=== PATIENT | male | born 1960 ===

== ENCOUNTER 2017-02-28 04:30 | Inpatient (IN) | payer BC ==
--- NOTE | 2017-02-28 05:17 | ED PDOC ---
HPI: Male Pain Time Seen by Provider: 02/28/17 04:37 Chief Complaint (Nursing): Male Genitourinary Chief Complaint (Provider): Male Genitourinary History Per: Patient History/Exam Limitations: no limitations Onset/Duration Of Symptoms: Days (x4) Current Symptoms Are (Timing): Still Present Additional Complaint(s): French Lea is a 56 year old male that presents to the ED with a chief complaint of right testicular pain that developed on Wednesday. Patient states that believes his pain initially started by "awkwardly sitting on his testicle, " but was then able to go cycling afterward without any difficulty. As the pain progressively worsened throughout the day, he went to an Urgent Care center, and was diagnosed with epididymitis. He reports no imaging was performed. Patient states that he was given a shot of antibiotics and given a prescription of Doxycyline, which he was been using without any relief. Patient noticed worsened swelling and pain today, as well as had a tactile fever last night, which prompted his ED visit. He denies any dysuria, hematuria, penile discharge , or penile pain. Past Medical History Reviewed: Historical Data, Nursing Documentation, Vital Signs Vital Signs: Last Vital Signs Temp 98.9 F 02/28/17 04:38 Pulse 120 H 02/28/17 04:38 Resp 18 02/28/17 04:38 BP 139/103 H 02/28/17 04:38 Pulse Ox 98 02/28/17 04:38 - Family History Family History: States: Unknown Family Hx - Allergies Allergies/Adverse Reactions: Allergies Allergy/AdvReac Type Severity Reaction Status Date / Time No Known Allergies Allergy Verified 02/28/17 04:38 Review of Systems ROS Statement: Except As Marked, All Systems Reviewed And Found Negative Genitourinary Male: Positive for: Scrotal Pain, Other (Patient has right testicular pain.). Negative for: Dysuria, Hematuria, Penile Discharge, Penile Pain Physical Exam - Reviewed Nursing Documentation Reviewed: Yes Vital Signs Reviewed: Yes - Physical Exam Appears: Positive for: Non-toxic. Negative for: No Acute Distress (Patient is in minimal painful distress.) Head Exam: Positive for: ATRAUMATIC, NORMAL INSPECTION, NORMOCEPHALIC Skin: Positive for: Normal Color, Warm. Negative for: Rash Eye Exam: Positive for: Normal appearance, EOMI, PERRL Cardiovascular/Chest: Positive for: Regular Rate, Rhythm. Negative for: Murmur Respiratory: Positive for: Normal Breath Sounds. Negative for: Wheezing Gastrointestinal/Abdominal: Positive for: Normal Exam, Soft. Negative for: Tenderness Male Genital Exam: Positive for: other (Patient is a noncircumcised male with a large amount of right testicular swelling. Patient's left testicle has no tenderness, swelling, or masses. Negative Phren's sign. ) Back: Positive for: Normal Inspection. Negative for: L CVA Tenderness, R CVA Tenderness Neurologic/Psych: Positive for: Alert, Oriented. Negative for: Motor/Sensory Deficits - ECG O2 Sat by Pulse Oximetry: 98 (RA) Pulse Ox Interpretation: Normal Medical Decision Making Medical Decision Making: Impression: Testicular Pain Plan: * VBG * CMP * CBC * Chlamydia GC/RNA * Blood Culture * Urine C&S * Urinalysis * US Testest Duplex * Toradol 15 mg IM * Reevaluation 6:00 Patient signed out to Dr. Negrito Haynes MD pending ultrasound. Clinical Impression: Orchitis Scribe Attestation: Documented by Teagan Dawkins, acting as a scribe for Aristeo Holt PA-C. Provider Scribe Attestation: All medical record entries made by the Scribe were at my direction and personally dictated by me. I have reviewed the chart and agree that the record accurately reflects my personal performance of the history, physical exam, medical decision making, and the department course for this patient. I have also personally directed, reviewed, and agree with the discharge instructions and disposition. Disposition - Clinical Impression Clinical Impression: Orchitis - Disposition Disposition: Transfer of Care (Patient signed out to Dr. Negrito Haynes MD pending ultrasound.) Disposition Time: 06:00 Condition: FAIR Forms: [employer] (German)
[2017-02-28 05:38] LABS: VENOUS BLOOD GAS PCO2 32 mmHg (40-60); VENOUS BLOOD PH 7.45 (7.32-7.43)
[2017-02-28 06:10] LABS: RBC URINE 105 /hpf (0-3); URINE BACTERIA OCC (<OCC); URINE BILIRUBIN NEGATIVE (NEGATIVE); URINE BLOOD LARGE (NEGATIVE); URINE COLOR AMBER (YELLOW); URINE GLUCOSE (UA) NEG (Normal); URINE KETONE 80 mg/dL (NEGATIVE); URINE LEUKOCYTE ESTERASE SMALL Leu/uL (Negative); URINE PROTEIN 100 mg/dL (NEGATIVE); URINE UROBILINOGEN 0.2-1.0 mg/dL (0.2-1.0); WBC URINE 31 /hpf (0-5)
--- NOTE | 2017-02-28 06:10 | ED PDOC ---
- ECG O2 Sat by Pulse Oximetry: 98 (RA) <Negrito Haynes - Last Filed: 02/28/17 06:22> Medical Decision Making <Aristeo Holt - Last Filed: 02/28/17 06:13> <Negrito Haynes - Last Filed: 02/28/17 06:22> Medical Decision Makin:00 Patient signed over to me by Aristeo Holt PA-C pending ED workup pending ultrasound. Saw and examined patient at beside, patient feels warm to touch. Right testicle is firm, boggy, and erythematous. Concern for orchitis. 7:00 Patient signed out to Dr. Bliss pending ultrasound. (Negrito Haynes) Disposition - Disposition Disposition: Transfer of Care (Patient signed out to Dr. Negrito Haynes MD pending ultrasound) Disposition Time: 06:00 <Aristeo Holt E - Last Filed: 02/28/17 06:13> <Negrito Haynes - Last Filed: 02/28/17 06:22> - Clinical Impression Clinical Impression: Orchitis - Disposition Condition: FAIR Forms: [employer] (Croatian)
[2017-02-28] MEDS ORDERED: Sodium Chloride 0.9% 1,000 ML IV STA (06:13)
--- NOTE | 2017-02-28 06:25 | ED PDOC ---
- ECG O2 Sat by Pulse Oximetry: 98 (RA) Medical Decision Making Medical Decision Makin:00 Patient signed over to me by Aristeo Holt PA-C pending ED workup pending ultrasound. Saw and examined patient at beside, patient feels warm to touch. Right testicle is firm, boggy, and erythematous. Concern for orchitis. 7:00 Patient signed out to Dr. Bliss pending ultrasound. Disposition - Clinical Impression Clinical Impression: Orchitis - POA Present On Arrival: None - Disposition Disposition: Transfer of Care (Patient signed out to Dr. Bliss pending ultrasound.) Disposition Time: 07:00 Condition: FAIR Forms: [employer] (Dominican)
--- NOTE | 2017-02-28 06:27 | ED PDOC ---
- ECG O2 Sat by Pulse Oximetry: 98 (RA) Medical Decision Making Medical Decision Makin:00 Patient signed over to me by Aristeo Holt PA-C pending ED workup pending ultrasound. Saw and examined patient at beside, patient feels warm to touch. Right testicle is firm, boggy, and erythematous. Concern for orchitis. 7:00 Patient signed out to Dr. Bliss pending ultrasound. Disposition - Clinical Impression Clinical Impression: Orchitis - POA Present On Arrival: None - Disposition Disposition: Transfer of Care Disposition Time: 07:00 Condition: FAIR Forms: [employer] (Kuwaiti) Patient Signed Over To: Scarlet Bliss (pending ultrasound) Handoff Comments: bloodwork, u/s
[2017-02-28 06:38] LABS: BASO # 0.1 K/uL (0.0-0.2); BASO % 0.2 % (0.0-2.0); HEMATOCRIT 42.3 % (35.0-51.0); LYMPH # 0.6 K/uL (1.0-4.3); MEAN CELL VOLUME 90.9 fl (80.0-94.0); MEAN CORPUSCULAR HEMOGLOBIN 30.7 pg (27.0-31.0); MEAN CORPUSCULAR HGB CONC 33.7 g/dL (33.0-37.0); MEAN PLATELET VOLUME 8.9 fl (7.2-11.7); MONO # 1.4 K/uL (0.0-0.8); MONO % 6.6 % (0.0-10.0); NEUT # 18.8 K/uL (1.8-7.0); NEUT % 90.2 % (50.0-75.0); PLATELET COUNT 245 K/uL (130-400); WHITE BLOOD COUNT 20.9 K/uL (4.8-10.8)
[2017-02-28] MEDS ORDERED: levoFLOXacin 750 mg in D5W 750 MG/150 ML BAG IVPB STA (06:40)
[2017-02-28 06:57] LABS: ALB/GLOB RATIO 1.2 (1.0-2.1); ALKALINE PHOSPHATASE 128 U/L (38-126); ALT/SGPT 22 U/L (21-72); AST/SGOT 24 U/L (17-59); BILIRUBIN,TOTAL 1.4 mg/dl (0.2-1.3); BLOOD UREA NITROGEN 19 mg/dl (9-20); CALCIUM 9.4 mg/dL (8.4-10.2); CARBON DIOXIDE 23 mmol/L (22-30); CHLORIDE 102 mmol/L (98-107); GFR AFRICAN-AMERICAN > 60; GLUCOSE,RANDOM 133 mg/dL (75-110); POTASSIUM 3.8 MMOL/L (3.6-5.0); SODIUM 138 mmol/l (132-148)
--- NOTE | 2017-02-28 07:09 | ED PDOC ---
- Laboratory Results Result Diagrams: 03/01/17 07:00 03/01/17 07:00 - ECG O2 Sat by Pulse Oximetry: 98 (RA) Pulse Ox Interpretation: Normal Medical Decision Making Medical Decision Making: Receiving sign out: Patient signed out to me by Dr. Haynes at 0700 pending testicular US. Scribe Attestation: Documented by Melissa Mendiola acting as a scribe for Scarlet Bliss MD. Provider Attestation: All medical record entries made by the Scribe were at my direction and personally dictated by me. I have reviewed the chart and agree that the record accurately reflects my personal performance of the history, physical exam, medical decision making, and the department course for this patient. I have also personally directed, reviewed, and agree with the discharge instructions and disposition. Disposition - Clinical Impression Clinical Impression: Epididymo-orchitis, SIRS (systemic inflammatory response syndrome), Failure of outpatient treatment - POA Present On Arrival: None - Disposition Disposition: Admitted as In-Patient Disposition Time: 09:44 Condition: STABLE Progress Note - Review of Symptoms Events since last encounter: Time: 32 US Testicular IMPRESSION: Complex the right-sided hydrocele with right epididymal cyst and increased vascularity associate with increased vascularity of the right testicle collectively consistent with epididymo-orchitis. . Right-sided varicocele. Small left-sided epididymal cyst and small left-sided hydrocele. Time: [address] Thompson, hospitalist, and patient is to be admitted in- service due to SIRS, epididymo-orchitis and failed outpatient therapy. Time: [address] Spivey, consult requested and informed of admission. Dr. Spivey is aware of case and agrees with plan.
[2017-02-28] MEDS ORDERED: levoFLOXacin 750 mg in D5W 750 MG/150 ML BAG IVPB ONE (07:22)
--- NOTE | 2017-02-28 09:33 | US ---
HISTORY: R testicular pain and swelling TECHNIQUE: Realtime sonography through the scrotum with color and doppler flow. COMPARISON: None Available. FINDINGS: RIGHT TESTICLE: Measures approximately 5.3 x 3.2 x 2.7 cm. Right testicle exhibits heterogeneous echotexture and increased vascularity suggesting orchitis RIGHT EPIDIDYMIS: Epididymal head measures 3.0 x 2.012.4 cm. . There is a cyst enhancing hyperdense which measures 1.7 x 1.5 x 1.9 cm with increased vascularity suggesting epididymitis. LEFT TESTICLE: Measures approximately 4.3 x 2.8 x 2.9 cm. Normal echotexture and flow. LEFT EPIDIDYMIS: Epididymal head measures approximately 1.0 x 1.3 x 1.6 cm. There is also small cyst within the head of the epididymis that may represent a spermatocele measuring 5 mm x 5 mm x 5 mm. HYDROCELE: Complex right-sided hydrocele. . Small left-sided hydrocele VARICOCELE: Right-sided varicoceles present OTHER FINDINGS: None. IMPRESSION: Complex the right-sided hydrocele with right epididymal cyst and increased vascularity associate with increased vascularity of the right testicle collectively consistent with epididymo-orchitis. . Right-sided varicocele. Small left-sided epididymal cyst and small left-sided hydrocele
--- NOTE | 2017-02-28 10:56 | CP.PCM.HP ---
History of Present Illness - History of Present Illness History of Present Illness: 56 yo male with history of BPH and TURP in October, came in complaining of pain and swelling of the right testicle since 4 days ago. Condition started as pain on the right testicle radiating to the suprapubic area and back. The next day, the pain became more intense and his right testicle became enlarged the size of a baseball and was very hard. He went to an urgent and was given a shot of antibiotic and was sent home with Doxycycline. There was slight improvement but the next day, pain became intense accompanied with fever and chills. He denied dysuria or penile discharge. Present on Admission - Present on Admission Any Indicators Present on Admission: No History of DVT/PE: No History of Uncontrolled Diabetes: No Urinary Catheter: No Decubitus Ulcer Present: No Review of Systems - Review of Systems All systems: reviewed and no additional remarkable complaints except (aside from those mentioned above, 12 point system review were negative by me) Past Patient History - Tetanus Immunizations Tetanus Immunization: Unknown - Past Social History Smoking Status: Never Smoked Alcohol: Occasional Drugs: Denies Home Situation {Lives}: With Family - CARDIAC Hx Cardiac Disorders: No - PULMONARY Hx Respiratory Disorders: No - NEUROLOGICAL Hx Neurological Disorder: No - HEENT Hx HEENT Problems: No - RENAL Hx Chronic Kidney Disease: No - ENDOCRINE/METABOLIC Hx Endocrine Disorders: No - HEMATOLOGICAL/ONCOLOGICAL Hx Blood Disorders: No - INTEGUMENTARY Hx Dermatological Problems: No - MUSCULOSKELETAL/RHEUMATOLOGICAL Hx Musculoskeletal Disorders: No - GASTROINTESTINAL Hx Gastrointestinal Disorders: No - GENITOURINARY/GYNECOLOGICAL Hx Prostate Problems: Yes - PSYCHIATRIC Hx Psychophysiologic Disorder: No Hx Substance Use: No - SURGICAL HISTORY Hx Surgeries: Yes Other/Comment: TURP, October, - ANESTHESIA Hx Anesthesia: Yes Hx Anesthesia Reactions: No Meds Allergies/Adverse Reactions: Allergies Allergy/AdvReac Type Severity Reaction Status Date / Time No Known Allergies Allergy Verified 02/28/17 04:38 Physical Exam - Constitutional Appears: No Acute Distress - Head Exam Head Exam: ATRAUMATIC - Eye Exam Eye Exam: absent: Scleral icterus - ENT Exam ENT Exam: Mucous Membranes Moist - Neck Exam Neck exam: Negative for: Meningismus - Respiratory Exam Respiratory Exam: absent: Rhonchi, Wheezes, Respiratory Distress - Cardiovascular Exam Cardiovascular Exam: REGULAR RHYTHM, +S1, +S2 - GI/Abdominal Exam GI & Abdominal Exam: Soft, Tenderness (mild tenderness on suprapubic area) - Rectal Exam Rectal Exam: Deferred - Exam Exam: Scrotal Swelling (right testicle markedly swollen, hard and tender). absent: Uretheral Discharge - Extremities Exam Extremities exam: Negative for: pedal edema - Back Exam Back exam: NORMAL INSPECTION - Neurological Exam Neurological exam: Alert, Oriented x3 - Psychiatric Exam Psychiatric exam: Normal Affect - Skin Skin Exam: Dry, Intact Results - Vital Signs Recent Vital Signs: Last Vital Signs Temp 101.3 F H 02/28/17 06:39 Pulse 120 H 02/28/17 04:38 Resp 18 02/28/17 04:38 BP 139/103 H 02/28/17 04:38 Pulse Ox 98 02/28/17 09:52 - Labs Result Diagrams: 02/28/17 05:24 02/28/17 05:24 Assessment & Plan (1) Epididymo-orchitis Status: Acute Comment: admit to med/surg. blood culture x 2. urine culture. Levaquin 750mg IV q 24hrs. Motrin 400mg PO q 4hrs prn for moderate pain. Morphine 2mg IV q 4hrs prn for severe pain. urology consult with Dr Spivey
[2017-02-28 11:44] LABS: NEUTROPHIL 81 % (42-75); TOTAL CELLS COUNTED 100
[2017-02-28 11:45] LABS: LARGE PLATELETS PRESENT
[2017-03-01 07:48] LABS: HEMATOCRIT 38.1 % (35.0-51.0); LYMPH # 1.2 K/uL (1.0-4.3); LYMPH % 4.4 % (20.0-40.0); MEAN CELL VOLUME 91.5 fl (80.0-94.0); MEAN CORPUSCULAR HEMOGLOBIN 30.1 pg (27.0-31.0); MEAN CORPUSCULAR HGB CONC 32.9 g/dL (33.0-37.0); MEAN PLATELET VOLUME 8.8 fl (7.2-11.7); MONO # 2.4 K/uL (0.0-0.8); MONO % 8.5 % (0.0-10.0); NEUT # 24.1 K/uL (1.8-7.0); NEUT % 87.1 % (50.0-75.0); RED CELL DISTRIBUTION WIDTH 13.7 % (11.5-14.5); WHITE BLOOD COUNT 27.7 K/uL (4.8-10.8)
[2017-03-01 07:57] LABS: BLOOD UREA NITROGEN 24 mg/dl (9-20); CARBON DIOXIDE 26 mmol/L (22-30); CHLORIDE 100 mmol/L (98-107); GFR AFRICAN-AMERICAN > 60; GLUCOSE,RANDOM 123 mg/dL (75-110); POTASSIUM 4.7 MMOL/L (3.6-5.0); SODIUM 135 mmol/l (132-148)
[2017-03-01] MEDS ORDERED: levoFLOXacin 750 mg in D5W 150 ML BAG IVPB SCH (09:00)
[2017-03-01] MEDS: Enoxaparin 40 mg Syringe SC SCH (09:10)
[2017-03-01] MEDS ORDERED: Chlorhexidine Gluconate 1 APPL/PKT TP ONE (09:24)
[2017-03-01] MEDS: levoFLOXacin 750 mg in D5W 750 MG/150 ML BAG IVPB SCH (09:40)
--- NOTE | 2017-03-01 12:02 | CP.PCM.PN ---
Subjective - Date & Time of Evaluation Date of Evaluation: 03/01/17 Time of Evaluation: 11:30 - Subjective Subjective: Patient seen and examined bedside. Feeling a little better. Swelling to right testis slightly improved . Still febrile Tmax 102.9 . WBC trending up from 20 K to 27 K Objective - Vital Signs/Intake and Output Vital Signs (last 24 hours): Temp Pulse Resp BP Pulse Ox 102.9 F H 110 H 20 95/65 L 96 03/01/17 07:37 03/01/17 07:30 03/01/17 07:30 03/01/17 07:30 03/01/17 07:30 - Medications Medications: Current Medications Acetaminophen (Tylenol 325mg Tab) 650 mg PO Q6 PRN PRN Reason: Fever >100.4 F Last Admin: 03/01/17 07:37 Dose: 650 mg Enoxaparin Sodium (Lovenox) 40 mg SC DAILY [facility] PRN Reason: Protocol Last Admin: 03/01/17 09:10 Dose: 40 mg Famotidine (Pepcid) 20 mg PO BID [facility] Last Admin: 03/01/17 09:11 Dose: 20 mg Levofloxacin/Dextrose (Levaquin 750mg) 750 mg in 150 mls @ 150 mls/hr IVPB DAILY [facility] Last Admin: 03/01/17 09:40 Dose: 150 mls/hr Clindamycin Phosphate 600 mg/ (Sodium Chloride) 54 mls @ 54 mls/hr IVPB Q8 [facility] Ibuprofen (Motrin Tab) 400 mg PO Q6H PRN PRN Reason: Pain, moderate (4-7) Last Admin: 02/28/17 18:11 Dose: 400 mg Morphine Sulfate (Morphine) 2 mg IVP Q4 PRN PRN Reason: Pain, severe (8-10) Last Admin: 02/28/17 20:11 Dose: 2 mg - Labs Labs: 03/01/17 07:00 03/01/17 07:00 - Constitutional Appears: Non-toxic, No Acute Distress - Head Exam Head Exam: ATRAUMATIC, NORMAL INSPECTION, NORMOCEPHALIC - Eye Exam Eye Exam: EOMI, Normal appearance, PERRL Pupil Exam: NORMAL ACCOMODATION - ENT Exam ENT Exam: Mucous Membranes Moist, Normal Exam - Neck Exam Neck Exam: Full ROM, Normal Inspection - Respiratory Exam Respiratory Exam: Clear to Ausculation Bilateral, NORMAL BREATHING PATTERN. absent: Rales, Rhonchi, Wheezes - Cardiovascular Exam Cardiovascular Exam: REGULAR RHYTHM, RRR, +S1, +S2. absent: JVD - GI/Abdominal Exam GI & Abdominal Exam: Soft, Normal Bowel Sounds. absent: Distended, Guarding, Tenderness, Rebound - Rectal Exam Rectal Exam: Deferred - Exam Exam: Scrotal Swelling (right , hard to touch with no fluctuation or abscess) , Testicular Tenderness - Extremities Exam Extremities Exam: Full ROM, Normal Capillary Refill, Normal Inspection. absent : Calf Tenderness, Pedal Edema - Back Exam Back Exam: NORMAL INSPECTION - Neurological Exam Neurological Exam: Alert, Awake, CN II-XII Intact, Oriented x3 - Psychiatric Exam Psychiatric exam: Normal Affect, Normal Mood - Skin Skin Exam: Dry, Intact, Normal Color, Warm Assessment and Plan - Assessment and Plan (Free Text) Assessment: 56 yo male with history of BPH and TURP in October, came in complaining of pain and swelling of the right testicle for 4 days. Condition started as pain on the right testicle radiating to the suprapubic area and back. The next day, the pain became more intense and his right testicle became enlarged the size of a baseball and was very hard. He went to an urgent and was given a shot of antibiotic and was sent home with Doxycycline. There was slight improvement but the next day, pain became intense accompanied with fever and chills. He denied dysuria or penile discharge. 1 Epididymo-orchitis Acute patient is febrile Tmax 102.9 , WBC elevated 27 k Continue Levaquine IV and started on Clindamycin as per ID Follow up urine and blood cultures urology and ID consult appreciated pain management 2. DVt prophylaxis SCD and lovenox
[2017-03-01] MEDS ORDERED: Clindamycin 600 MG in Sodium Chloride 0.9% 100 ML IVPB SCH (12:15)
[2017-03-01] MEDS: Clindamycin 600 MG in Sodium Chloride 0.9% 100 ML IVPB SCH (21:26)
[2017-03-02] MEDS: Clindamycin 600 MG in Sodium Chloride 0.9% 100 ML IVPB SCH ×3 (05:59→21:33)
--- NOTE | 2017-03-02 06:58 | CON ---
DATE: 03/01/2017 TIME OF CONSULTATION: Roughly 9:34 a.m. BRIEF HISTORY: The patient is a 56-year-old male who was originally seen at an urgent care center on 02/26/2017, with a history of acute swelling of the right testicle and the patient was treated at the urgent center with an IM antibiotic and then oral doxycycline. He initially felt better with decreased swelling and pain for the first 36 hours and then progressed and started developing increased swelling and pain. The patient then came to [facility] Emergency Room where a scrotal ultrasound on 02/28/2017, showed right epididymo-orchitis. The patient was admitted because of spiking high temperatures and an elevated white count of 20,000. The patient was started on IV Levaquin and is currently still spiking temperatures over 102, today 03/01/2017, and his white count went from 20,000 to over 27,000 on IV Levaquin. The IM medication, which he responded to at the urgent center is not known at this time, but this will be verified today. The patient says that his swelling; however, has gone down, and he is almost pain-free in the right testicle at this hour. PAST MEDICAL HISTORY: He has no prior past medical history. PAST SURGICAL HISTORY: His past surgical history is status post a TURP done at [facility] in [place] in October 2016 with a treatment of BPH. ALLERGIES: HE HAS NO KNOWN ALLERGIES TO ANY MEDICATION. SOCIAL HISTORY: He is a nonsmoker and just a occasional social drinker. PHYSICAL EXAMINATION: GENERAL: Today, he is well-developed, well-nourished male. He is alert and oriented. VITAL SIGNS: Today, early this morning, his temperature was 97.8, but later this morning, his temperature spiked to a 102.9 at 7.37 a.m. His pulse rate is 110, his blood pressure was 95/65, and his respiratory rate is 20, and his O2 sat on room air was 96% HEENT: Grossly within normal limits. NECK: Supple. Thyroid not palpable. ABDOMEN: Soft, nondistended, and nontender. No CVA tenderness. No suprapubic tenderness. GENITALIA: The patient is non-circumcised with a normal glans meatus without any rashes or lesions visualized. Testes are down bilaterally. The left testicle was completely normal. The right testicle and epididymis are both swollen and moderately tender. RECTAL: Normal rectal tone without fluctuance or masses. Prostate is slightly enlarged, smooth, symmetrical, and minimally tender without nodules or indurations with a palpable median sulcus. The prostate is minimally tender mostly on the right side. LABORATORY EVALUATION: His laboratory evaluation on 03/01/2017, shows a CBC with a WBC count of 27.7, hemoglobin of 12.5, hematocrit of 38.1, and a platelet count of 224,000. His chem profile shows a sodium of 135, potassium 4.7, chloride 100, CO2 26, BUN and creatinine 24 and 1.3 respectively with a GFR of 57. Random glucose is 123, calcium is 9.0. Urinalysis on 02/28/2017, showed a color was mita, clarity was slightly cloudy, pH was 5.0, specific gravity 1.032, protein 100, glucose negative, ketones 80; blood large; nitrite negative; bilirubin negative; urobilinogen 0.2 to 1.0. Leukocyte esterase small. There are 105 rbc's and 31 wbc's per high-power field with occasional bacteria. This could be indicative of a urinary tract infection. Urine cultures and sensitivity are pending. DIAGNOSTIC IMPRESSION: For this patient right now is; 1. Right epididymo-orchitis. 2. Possible urinary tract infection. 3. Microscopic hematuria. PLAN: 1. For this patient, continue the patient on IV antibiotics. 2. Infectious Disease consult should be requested at this time. 3. Check the parenteral medication the patient received at the urgent care center on Wednesday02/26/2017. 4. Check the urine cultures and blood cultures. Randy Spivey MD [facility]
[2017-03-02 07:25] LABS: HEMATOCRIT 37.1 % (35.0-51.0); MEAN CORPUSCULAR HEMOGLOBIN 30.6 pg (27.0-31.0); RED CELL DISTRIBUTION WIDTH 13.9 % (11.5-14.5); WHITE BLOOD COUNT 20.5 K/uL (4.8-10.8)
--- NOTE | 2017-03-02 07:33 | CP.PCM.PN ---
Subjective - Date & Time of Evaluation Date of Evaluation: 03/02/17 Time of Evaluation: 11:00 - Subjective Subjective: Patient seen and examined bedside. States that feels better. Still febrile with Tmax 102.9 1 episode last 24 hours WBC trending down from 27 K -- 20 Pain to right testis is better controlled Objective - Vital Signs/Intake and Output Vital Signs (last 24 hours): Temp Pulse Resp BP Pulse Ox 98.6 F 72 20 111/72 96 03/02/17 01:22 03/02/17 01:22 03/02/17 01:22 03/02/17 01:22 03/02/17 01:22 - Medications Medications: Current Medications Acetaminophen (Tylenol 325mg Tab) 650 mg PO Q6 PRN PRN Reason: Fever >100.4 F Last Admin: 03/01/17 07:37 Dose: 650 mg Docusate Sodium (Colace) 100 mg PO BID [facility] Last Admin: 03/01/17 21:34 Dose: 100 mg Enoxaparin Sodium (Lovenox) 40 mg SC DAILY [facility] PRN Reason: Protocol Last Admin: 03/01/17 09:10 Dose: 40 mg Famotidine (Pepcid) 20 mg PO BID [facility] Last Admin: 03/01/17 17:12 Dose: 20 mg Levofloxacin/Dextrose (Levaquin 750mg) 750 mg in 150 mls @ 150 mls/hr IVPB DAILY [facility] Last Admin: 03/01/17 09:40 Dose: 150 mls/hr Clindamycin Phosphate 600 mg/ (Sodium Chloride) 104 mls @ 104 mls/hr IVPB 0600, 1400,2200 [facility] Last Admin: 03/02/17 05:59 Dose: 104 mls/hr Ibuprofen (Motrin Tab) 400 mg PO Q6H PRN PRN Reason: Pain, moderate (4-7) Last Admin: 02/28/17 18:11 Dose: 400 mg Morphine Sulfate (Morphine) 2 mg IVP Q4 PRN PRN Reason: Pain, severe (8-10) Last Admin: 02/28/17 20:11 Dose: 2 mg - Labs Labs: 03/02/17 07:05 03/01/17 07:00 - Constitutional Appears: Non-toxic, No Acute Distress - Head Exam Head Exam: ATRAUMATIC, NORMAL INSPECTION, NORMOCEPHALIC - Eye Exam Eye Exam: EOMI, Normal appearance, PERRL Pupil Exam: NORMAL ACCOMODATION - ENT Exam ENT Exam: Mucous Membranes Moist, Normal Exam - Neck Exam Neck Exam: Full ROM, Normal Inspection - Respiratory Exam Respiratory Exam: Clear to Ausculation Bilateral, NORMAL BREATHING PATTERN. absent: Rales, Rhonchi, Wheezes - Cardiovascular Exam Cardiovascular Exam: REGULAR RHYTHM, RRR, +S1, +S2. absent: JVD - GI/Abdominal Exam GI & Abdominal Exam: Soft, Normal Bowel Sounds. absent: Distended, Guarding, Tenderness, Rebound - Rectal Exam Rectal Exam: Deferred - Exam Exam: Scrotal Swelling (right ), Testicular Tenderness. absent: Uretheral Discharge - Extremities Exam Extremities Exam: Full ROM, Normal Capillary Refill, Normal Inspection. absent : Calf Tenderness, Pedal Edema - Back Exam Back Exam: NORMAL INSPECTION - Neurological Exam Neurological Exam: Alert, Awake, CN II-XII Intact, Oriented x3 - Psychiatric Exam Psychiatric exam: Normal Affect, Normal Mood - Skin Skin Exam: Dry, Intact, Normal Color, Warm Assessment and Plan - Assessment and Plan (Free Text) Assessment: 56 yo male with history of BPH and TURP in October, came in complaining of pain and swelling of the right testicle for 4 days. Condition started as pain on the right testicle radiating to the suprapubic area and back. The next day, the pain became more intense and his right testicle became enlarged the size of a baseball and was very hard. He went to an urgent and was given a shot of antibiotic and was sent home with Doxycycline. There was slight improvement but the next day, pain became intense accompanied with fever and chills. He denied dysuria or penile discharge. Patient admitted with fever Tmax 102, WBC 20 K . Testicular US showed:Complex the right-sided hydrocele with right epididymal cyst and increased vascularity associate with increased vascularity of the right testicle collectively consistent with epididymo-orchitis. . Right-sided varicocele. Small left-sided epididymal cyst and small left-sided hydrocele Patient admitted to med/surg and started on IV antibiotics. Urology and ID consulted 1 Epididymo-orchitis Acute patient Tmax 102.9 1 episode last 24 hours , WBC trending down from 27 k -- 20 k, feeling better Continue Levaquine IV and Clindamycin iv as per ID urine and blood cultures WITH NO GROWTH ANDREA FAR urology and ID consult appreciated pain management 2. DVt prophylaxis SCD and lovenox
[2017-03-02 07:34] LABS: BLOOD UREA NITROGEN 19 mg/dl (9-20); CARBON DIOXIDE 24 mmol/L (22-30); CHLORIDE 104 mmol/L (98-107); GFR AFRICAN-AMERICAN > 60; GLUCOSE,RANDOM 118 mg/dL (75-110); SODIUM 140 mmol/l (132-148)
[2017-03-02] MEDS: Enoxaparin 40 mg Syringe SC SCH (08:56)
[2017-03-02] MEDS: levoFLOXacin 750 mg in D5W 750 MG/150 ML BAG IVPB SCH (08:56)
--- NOTE | 2017-03-02 11:44 | CP.PCM.CON ---
History of Present Illness - History of Present Illness History of Present Illness: 56 yo male with history of BPH and TURP in October, came in complaining of pain and swelling of the right testicle since 4 days ago. Condition started as pain on the right testicle radiating to the suprapubic area and back. The next day, the pain became more intense and his right testicle became enlarged the size of a baseball and was very hard. He went to an urgent and was given a shot of antibiotic and was sent home with Doxycycline. There was slight improvement but the next day, pain became intense accompanied with fever and chills. He denied dysuria or penile discharge. initially started on Levaquin all cultures negative clinda added empirically and now wbc down to 20k Review of Systems - Constitutional Constitutional: As Per HPI - EENT Eyes: absent: As Per HPI, Blind Spots, Blurred Vision, Change in Vision, Decreased Night Vision, Diplopia, Discharge, Dry Eye, Exophthalmos, Floaters, Irritation, Itchy Eyes, Loss of Peripheral Vision, Pain, Photophobia, Requires Corrective Lenses, Sees Flashes, Spots in Vision, Tunnel Vision, Other Visual Disturbances, Loss of Vision, Other Ears: absent: As Per HPI, Decreased Hearing, Ear Discharge, Ear Pain, Tinnitus, Abnormal Hearing, Disequilibrium, Dizziness, Other Nose/Mouth/Throat: absent: As Per HPI, Epistaxis, Nasal Congestion, Nasal Discharge, Nasal Obstruction, Nasal Trauma, Nose Pain, Post Nasal Drip, Sinus Pain, Sinus Pressure, Bleeding Gums, Change in Voice, Dental Pain, Dry Mouth, Dysphagia, Halitosis, Hoarsness, Lip Swelling, Mouth Lesions, Mouth Pain, Odynophagia, Sore Throat, Throat Swelling, Tongue Swelling, Facial Pain, Neck Pain, Neck Mass, Other - Cardiovascular Cardiovascular: absent: As Per HPI, Acrocyanosis, Chest Pain, Chest Pain at Rest , Chest Pain with Activity, Claudication, Diaphoresis, Dyspnea, Dyspnea on Exertion, Edema, Irregular Heart Rhythm, Pain Radiating to Arm/Neck/Jaw, Leg Edema, Leg Ulcers, Lightheadedness, Orthopnea, Palpitations, Paroxysmal Nocturnal Dyspnea, Pedal Edema, Radiating Pain, Rapid Heart Rate, Slow Heart Rate, Syncope, Other - Respiratory Respiratory: absent: As Per HPI, Cough, Dyspnea, Hemoptysis, Dyspnea on Exertion , Wheezing, Snoring, Stridor, Pain on Inspiration, Chest Congestion, Excessive Mucous Production, Change in Mucous Color, Pain with Coughing, Other - Gastrointestinal Gastrointestinal: absent: As Per HPI, Abdominal Pain, Belching, Bloating, Change in Bowel Habits, Change in Stool Character, Coffee Ground Emesis, Constipation, Cramping, Diarrhea, Dyspepsia, Dysphagia, Early Satiety, Excessive Flatus, Fecal Incontinence, Heartburn, Hematemesis, Hematochezia, Loose Stools, Melena, Nausea, Odynophagia, Temesmus, Vomiting, Other - Genitourinary Genitourinary: As Per HPI - Musculoskeletal Musculoskeletal: absent: As Per HPI, Abnormal Gait, Arthralgias, Atrophy, Back Pain, Deformity, Joint Swelling, Limited Range of Motion, Loss of Height, Muscle Cramps, Muscle Weakness, Myalgias, Neck Pain, Numbness, Radiating Pain into Limb, Stiffness, Tingling, Other - Integumentary Integumentary: absent: As Per HPI, Acne, Alopecia, Bleeding Lesions, Change in Hair, Change in Nails, Change in Pigmentation, Changing Lesions, Dry Skin, Erythema, Furuncle, Hirsutism, Lesions, New Lesions, Non-Healing Lesions, Photosensitivity, Pruritus, Rash, Skin Pain, Skin Ulcer, Sores, Striae, Swelling , Unusual Bruising, Wounds, Jaundice, Other - Neurological Neurological: absent: As Per HPI, Abnormal Gait, Abnormal Hearing, Abnormal Movements, Abnormal Speech, Behavioral Changes, Burning Sensations, Confusion, Convulsions, Disequilibrium, Dizziness, Numbness, Focal Weakness, Frequent Falls , Headaches, Lack of Coordination, Loss of Vision, Memory Loss, Paresthesias, Radicular Pain, Restless Legs, Sensory Deficit, Syncope, Tingling, Tremor, Vertigo, Weakness, Other Visual Disturbances, Other - Psychiatric Psychiatric: absent: As Per HPI, Abnormal Sleep Pattern, Anhedonia, Anxiety, Auditory Hallucinations, Behavioral Changes, Change in Appetite, Change in Libido, Confusion, Depression, Difficulty Concentrating, Hallucinations, Homicidal Ideation, Hopelessness, Irritability, Memory Loss, Mood Swings, Panic Attacks, Paranoia, Suicidal Ideation, Visual Hallucinations, Tactile Hallucinations, Other - Endocrine Endocrine: absent: As Per HPI, Change in Body Appearance, Change in Libido, Cold Intolorance, Deepening of Voice, Excessive Sweating, Fatigue, Flushing, Heat Intolorance, Increase in Ring/Shoe/Hat Size, Palpitations, Polydipsia, Polyphagia, Polyuria, Other - Hematologic/Lymphatic Hematologic: absent: As Per HPI, Easy Bleeding, Easy Bruising, Lymphadenopathy, Other Past Patient History - Tetanus Immunizations Tetanus Immunization: Unknown - Past Medical History & Family History Past Medical History?: Yes - Past Social History Smoking Status: Never Smoked - CARDIAC Hx Cardiac Disorders: No - PULMONARY Hx Respiratory Disorders: No - NEUROLOGICAL Hx Neurological Disorder: No - HEENT Hx HEENT Problems: No - RENAL Hx Chronic Kidney Disease: No - ENDOCRINE/METABOLIC Hx Endocrine Disorders: No - HEMATOLOGICAL/ONCOLOGICAL Hx Blood Disorders: No - INTEGUMENTARY Hx Dermatological Problems: No - MUSCULOSKELETAL/RHEUMATOLOGICAL Hx Musculoskeletal Disorders: No Hx Falls: No - GASTROINTESTINAL Hx Gastrointestinal Disorders: No - GENITOURINARY/GYNECOLOGICAL Hx Prostate Problems: Yes (prostate sx.) - PSYCHIATRIC Hx Psychophysiologic Disorder: No Hx Substance Use: No - SURGICAL HISTORY Hx Surgeries: Yes Other/Comment: TURP, October, - ANESTHESIA Hx Anesthesia: Yes Hx Anesthesia Reactions: No Meds Allergies/Adverse Reactions: Allergies Allergy/AdvReac Type Severity Reaction Status Date / Time No Known Allergies Allergy Verified 02/28/17 04:38 - Medications Medications: Current Medications Acetaminophen (Tylenol 325mg Tab) 650 mg PO Q6 PRN PRN Reason: Fever >100.4 F Last Admin: 03/01/17 07:37 Dose: 650 mg Docusate Sodium (Colace) 100 mg PO BID [facility] Last Admin: 03/02/17 08:55 Dose: 100 mg Enoxaparin Sodium (Lovenox) 40 mg SC DAILY [facility] PRN Reason: Protocol Last Admin: 03/02/17 08:56 Dose: 40 mg Famotidine (Pepcid) 20 mg PO BID [facility] Last Admin: 03/02/17 08:56 Dose: 20 mg Levofloxacin/Dextrose (Levaquin 750mg) 750 mg in 150 mls @ 150 mls/hr IVPB DAILY [facility] Last Admin: 03/02/17 08:56 Dose: 150 mls/hr Clindamycin Phosphate 600 mg/ (Sodium Chloride) 104 mls @ 104 mls/hr IVPB 0600, 1400,2200 [facility] Last Admin: 03/02/17 05:59 Dose: 104 mls/hr Ibuprofen (Motrin Tab) 400 mg PO Q6H PRN PRN Reason: Pain, moderate (4-7) Last Admin: 02/28/17 18:11 Dose: 400 mg Morphine Sulfate (Morphine) 2 mg IVP Q4 PRN PRN Reason: Pain, severe (8-10) Last Admin: 02/28/17 20:11 Dose: 2 mg Physical Exam - Constitutional Appears: Non-toxic, Chronically Ill - Head Exam Head Exam: NORMOCEPHALIC - Eye Exam Eye Exam: PERRL. absent: Scleral icterus - ENT Exam ENT Exam: Mucous Membranes Dry, Normal External Ear Exam - Neck Exam Neck exam: Negative for: Lymphadenopathy - Respiratory Exam Respiratory Exam: Decreased Breath Sounds, Clear to Auscultation Bilateral - Cardiovascular Exam Cardiovascular Exam: REGULAR RHYTHM - GI/Abdominal Exam GI & Abdominal Exam: Diminished Bowel Sounds, Soft. absent: Tenderness - Rectal Exam Rectal Exam: Deferred - Exam Exam: Scrotal Swelling, Testicular Tenderness. absent: NORMAL INSPECTION - Extremities Exam Extremities exam: Negative for: calf tenderness, pedal edema - Back Exam Back exam: absent: CVA tenderness (L), CVA tenderness (R) - Neurological Exam Neurological exam: Alert, CN II-XII Intact, Oriented x3, Reflexes Normal Results - Vital Signs Recent Vital Signs: Last Vital Signs Temp 98.5 F 03/02/17 08:20 Pulse 59 L 03/02/17 08:20 Resp 18 03/02/17 08:20 BP 104/67 03/02/17 08:20 Pulse Ox 99 03/02/17 08:20 - Labs Result Diagrams: 03/02/17 07:05 03/02/17 07:05 Labs: Laboratory Results - last 24 hr 03/02/17 03/02/17 07:05 07:05 WBC 20.5 H RBC 4.13 L Hgb 12.6 Hct 37.1 MCV 90.0 MCH 30.6 MCHC 34.0 RDW 13.9 Plt Count 243 Sodium 140 Potassium 4.0 Chloride 104 Carbon Dioxide 24 Anion Gap 16 BUN 19 Creatinine 0.9 Est GFR ( Amer) > 60 Est GFR (Non-Af Amer) > 60 Random Glucose 118 H Calcium 9.0 Assessment & Plan (1) Epididymo-orchitis Status: Acute (2) Failure of outpatient treatment Status: Acute (3) SIRS (systemic inflammatory response syndrome) Status: Acute - Assessment and Plan (Free Text) Assessment: await eval cont IV antibiotics will review imaging / cultures may need drainage
[2017-03-03] MEDS: Clindamycin 600 MG in Sodium Chloride 0.9% 100 ML IVPB SCH ×2 (06:26→14:28)
[2017-03-03 08:00] LABS: HEMATOCRIT 37.7 % (35.0-51.0); MEAN CELL VOLUME 90.8 fl (80.0-94.0); MEAN CORPUSCULAR HEMOGLOBIN 30.9 pg (27.0-31.0); MEAN CORPUSCULAR HGB CONC 34.1 g/dL (33.0-37.0); RED CELL DISTRIBUTION WIDTH 14.3 % (11.5-14.5); WHITE BLOOD COUNT 10.3 K/uL (4.8-10.8)
[2017-03-03 08:19] LABS: BLOOD UREA NITROGEN 21 mg/dl (9-20); CALCIUM 8.8 mg/dL (8.4-10.2); CARBON DIOXIDE 23 mmol/L (22-30); CHLORIDE 107 mmol/L (98-107); GFR AFRICAN-AMERICAN > 60; GLUCOSE,RANDOM 112 mg/dL (75-110); POTASSIUM 3.9 MMOL/L (3.6-5.0); SODIUM 141 mmol/l (132-148)
[2017-03-03] MEDS: Enoxaparin 40 mg Syringe SC SCH (08:26)
[2017-03-03] MEDS: levoFLOXacin 750 mg in D5W 750 MG/150 ML BAG IVPB SCH (08:28)
[2017-03-03 08:38] VITALS: BP 117/77; PULSE 60; RESP 18; TEMP 98.6; O2SAT 98
--- NOTE | 2017-03-03 10:26 | CP.PCM.DIS ---
Provider - Provider Date of Admission: 02/28/17 09:44 Attending physician: Clem Thompson MD Consults: urology consult ID consult Time Spent in preparation of Discharge (in minutes): 20 Hospital Course - Lab Results Lab Results: Most Recent Lab Values WBC 10.3 K/uL (4.8-10.8) 03/03/17 06:40 RBC 4.15 Mil/uL (4.40-5.90) L 03/03/17 06:40 Hgb 12.8 g/dL (12.0-18.0) 03/03/17 06:40 Hct 37.7 % (35.0-51.0) 03/03/17 06:40 MCV 90.8 fl (80.0-94.0) 03/03/17 06:40 MCH 30.9 pg (27.0-31.0) 03/03/17 06:40 MCHC 34.1 g/dL (33.0-37.0) 03/03/17 06:40 RDW 14.3 % (11.5-14.5) 03/03/17 06:40 Plt Count 254 K/uL (130-400) 03/03/17 06:40 MPV 8.8 fl (7.2-11.7) 03/01/17 07:00 Neut % (Auto) 87.1 % (50.0-75.0) H 03/01/17 07:00 Lymph % (Auto) 4.4 % (20.0-40.0) L 03/01/17 07:00 Gallia % (Auto) 8.5 % (0.0-10.0) 03/01/17 07:00 Eos % (Auto) 0.0 % (0.0-4.0) 03/01/17 07:00 Baso % (Auto) 0.0 % (0.0-2.0) 03/01/17 07:00 Neut # 24.1 K/uL (1.8-7.0) H 03/01/17 07:00 Lymph # 1.2 K/uL (1.0-4.3) 03/01/17 07:00 Gallia # 2.4 K/uL (0.0-0.8) H 03/01/17 07:00 Eos # 0.0 K/uL (0.0-0.7) 03/01/17 07:00 Baso # 0.0 K/uL (0.0-0.2) 03/01/17 07:00 Neutrophils % (Manual) 81 % (42-75) H 02/28/17 05:24 Band Neutrophils % 7 % (0-2) H 02/28/17 05:24 Lymphocytes % (Manual) 2 % (20-50) L 02/28/17 05:24 Monocytes % (Manual) 10 % (0-10) 02/28/17 05:24 Platelet Estimate Normal (NORMAL) 02/28/17 05:24 Large Platelets Present 02/28/17 05:24 Anisocytosis (manual) Slight 02/28/17 05:24 pO2 41 mm/Hg (30-55) 02/28/17 05:35 VBG pH 7.45 (7.32-7.43) H 02/28/17 05:35 VBG pCO2 32 mmHg (40-60) L 02/28/17 05:35 VBG HCO3 23.6 mmol/L 02/28/17 05:35 VBG Total CO2 23.2 mmol/L (22-28) 02/28/17 05:35 VBG O2 Sat (Calc) 85.9 % (40-65) H 02/28/17 05:35 VBG Base Excess -1.0 mmol/L (0.0-2.0) L 02/28/17 05:35 VBG Potassium 3.7 mmol/L (3.6-5.2) 02/28/17 05:35 Sodium 133.0 mmol/L (132-148) 02/28/17 05:35 Chloride 100.0 mmol/L (98-107) 02/28/17 05:35 Glucose 144 mg/dL (75-110) H 02/28/17 05:35 Lactate 1.6 mmol/L (0.7-2.1) 02/28/17 05:35 FiO2 21.0 % 02/28/17 05:35 Sodium 141 mmol/l (132-148) 03/03/17 06:40 Potassium 3.9 MMOL/L (3.6-5.0) 03/03/17 06:40 Chloride 107 mmol/L (98-107) 03/03/17 06:40 Carbon Dioxide 23 mmol/L (22-30) 03/03/17 06:40 Anion Gap 15 (10-20) 03/03/17 06:40 BUN 21 mg/dl (9-20) H 03/03/17 06:40 Creatinine 1.0 mg/dL (0.8-1.5) 03/03/17 06:40 Est GFR ( Amer) > 60 03/03/17 06:40 Est GFR (Non-Af Amer) > 60 03/03/17 06:40 Random Glucose 112 mg/dL (75-110) H 03/03/17 06:40 Calcium 8.8 mg/dL (8.4-10.2) 03/03/17 06:40 Total Bilirubin 1.4 mg/dl (0.2-1.3) H 02/28/17 05:24 AST 24 U/L (17-59) 02/28/17 05:24 ALT 22 U/L (21-72) 02/28/17 05:24 Alkaline Phosphatase 128 U/L (38-126) H 02/28/17 05:24 Total Protein 8.0 G/DL (6.3-8.2) 02/28/17 05:24 Albumin 4.3 g/dL (3.5-5.0) 02/28/17 05:24 Globulin 3.7 gm/dL (2.2-3.9) 02/28/17 05:24 Albumin/Globulin Ratio 1.2 (1.0-2.1) 02/28/17 05:24 Venous Blood Potassium 3.7 mmol/L (3.6-5.2) 02/28/17 05:35 Urine Color Cherie (YELLOW) 02/28/17 05:40 Urine Clarity Slighty-cloudy (Clear) 02/28/17 05:40 Urine pH 5.0 (5.0-8.0) 02/28/17 05:40 Ur Specific Honeydew 1.032 (1.003-1.030) H 02/28/17 05:40 Urine Protein 100 mg/dL (NEGATIVE) 02/28/17 05:40 Urine Glucose (UA) Neg mg/dL (Normal) 02/28/17 05:40 Urine Ketones 80 mg/dL (NEGATIVE) 02/28/17 05:40 Urine Blood Large (NEGATIVE) 02/28/17 05:40 Urine Nitrate Negative (NEGATIVE) 02/28/17 05:40 Urine Bilirubin Negative (NEGATIVE) 02/28/17 05:40 Urine Urobilinogen 0.2-1.0 mg/dL (0.2-1.0) 02/28/17 05:40 Ur Leukocyte Esterase Small Queta/uL (Negative) 02/28/17 05:40 Urine RBC (Auto) 105 /hpf (0-3) H 02/28/17 05:40 Urine Microscopic WBC 31 /hpf (0-5) H 02/28/17 05:40 Ur Squamous Epith Cells < 1 /hpf (0-5) 02/28/17 05:40 Urine Bacteria Occ (<OCC) H 02/28/17 05:40 - Hospital Course Hospital Course: 56 yo male with history of BPH and TURP in October, came in complaining of pain and swelling of the right testicle for 4 days. Condition started as pain on the right testicle radiating to the suprapubic area and back. The next day, the pain became more intense and his right testicle became enlarged the size of a baseball and was very hard. He went to an urgent and was given a shot of antibiotic and was sent home with Doxycycline. There was slight improvement but the next day, pain became intense accompanied with fever and chills. He denied dysuria or penile discharge. Patient admitted with fever Tmax 102, WBC 20 K . Testicular US showed:Complex the right-sided hydrocele with right epididymal cyst and increased vascularity associate with increased vascularity of the right testicle collectively consistent with epididymo-orchitis. . Right-sided varicocele. Small left-sided epididymal cyst and small left-sided hydrocele Patient admitted to med/surg and started on IV antibiotics. Urology and ID consulted blood and urine culture with no growth patient clinically improved on Levaquine IV and Clindamycin IV. Remained afebrile for 48 hours with WBC count that trended down from 20 K -- 10 k Patient feeling better, pain to right testis much improved but swelling still present even though slightly better. Discussed with urologist and ID . Recommended to d/c patient home with Cipro and Clindamycin Po for 10 days. Patient will follow up with his urologist in 1 week. Warm sit baths twice / day 1 Epididymo-orchitis 2. History of BPH s/p TURP 2. DVt prophylaxis Discharge Exam - Head Exam Head Exam: ATRAUMATIC, NORMAL INSPECTION, NORMOCEPHALIC - Eye Exam Eye Exam: EOMI, Normal appearance, PERRL Pupil Exam: NORMAL ACCOMODATION - ENT Exam ENT Exam: Mucous Membranes Moist, Normal Exam - Neck Exam Neck exam: Full Rom, Normal Inspection - Respiratory Exam Respiratory Exam: Clear to PA & Lateral, NORMAL BREATHING PATTERN. absent: Rales, Rhonchi, Wheezes - Cardiovascular Exam Cardiovascular Exam: REGULAR RHYTHM, RRR, +S1, +S2. absent: JVD - GI/Abdominal Exam GI & Abdominal Exam: Normal Bowel Sounds, Soft. absent: Distended, Guarding, Rebound, Tenderness - Rectal Exam Rectal Exam: Deferred - Exam Exam: Scrotal Swelling (right scrotal swelling 7x7 cm with no tenderness). absent: Uretheral Discharge - Extremities Exam Extremities exam: normal capillary refill, normal inspection, pedal pulses present - Back Exam Back exam: NORMAL INSPECTION - Neurological Exam Neurological exam: Alert, CN II-XII Intact, Oriented x3, Reflexes Normal - Psychiatric Exam Psychiatric exam: Normal Affect, Normal Mood Discharge Plan - Discharge Medications Prescriptions: Ciprofloxacin [Cipro] 500 mg PO BID #20 tab Clindamycin [Cleocin] 300 mg PO TID #30 cap - Follow Up Plan Condition: STABLE Disposition: HOME/ ROUTINE Patient education suggested?: Yes Instructions: Epididymo-orchitis (DC), Sitz Bath (DC), Sitz Bath (GEN) Additional Instructions: follow up with urologist in [place] may use sitz bath twice per day to soothe/comfort Referrals: Randy Spivey MD [Staff Provider] -
--- NOTE | 2017-03-03 12:36 | CP.PCM.PN ---
Subjective - Date & Time of Evaluation Date of Evaluation: 03/03/17 Time of Evaluation: 09:00 - Subjective Subjective: seen and examined swelling less wbc down to 10 k blood c/s negative Objective - Vital Signs/Intake and Output Vital Signs (last 24 hours): Temp Pulse Resp BP Pulse Ox 98.6 F 60 18 117/77 98 03/03/17 08:38 03/03/17 08:38 03/03/17 08:38 03/03/17 08:38 03/03/17 08:38 - Medications Medications: Current Medications Acetaminophen (Tylenol 325mg Tab) 650 mg PO Q6 PRN PRN Reason: Fever >100.4 F Last Admin: 03/01/17 07:37 Dose: 650 mg Docusate Sodium (Colace) 100 mg PO BID [facility] Last Admin: 03/03/17 08:26 Dose: 100 mg Enoxaparin Sodium (Lovenox) 40 mg SC DAILY [facility] PRN Reason: Protocol Last Admin: 03/03/17 08:26 Dose: 40 mg Famotidine (Pepcid) 20 mg PO BID [facility] Last Admin: 03/03/17 08:26 Dose: 20 mg Levofloxacin/Dextrose (Levaquin 750mg) 750 mg in 150 mls @ 150 mls/hr IVPB DAILY [facility] Last Admin: 03/03/17 08:28 Dose: 150 mls/hr Clindamycin Phosphate 600 mg/ (Sodium Chloride) 104 mls @ 104 mls/hr IVPB 0600, 1400,2200 [facility] Last Admin: 03/03/17 06:26 Dose: 104 mls/hr Ibuprofen (Motrin Tab) 400 mg PO Q6H PRN PRN Reason: Pain, moderate (4-7) Last Admin: 02/28/17 18:11 Dose: 400 mg Morphine Sulfate (Morphine) 2 mg IVP Q4 PRN PRN Reason: Pain, severe (8-10) Last Admin: 02/28/17 20:11 Dose: 2 mg - Labs Labs: 03/03/17 06:40 03/03/17 06:40 - Constitutional Appears: Non-toxic, Chronically Ill - Head Exam Head Exam: NORMOCEPHALIC - Eye Exam Eye Exam: PERRL - ENT Exam ENT Exam: Mucous Membranes Dry - Neck Exam Neck Exam: absent: Lymphadenopathy, Thyromegaly - Respiratory Exam Respiratory Exam: Decreased Breath Sounds, Clear to Ausculation Bilateral - Cardiovascular Exam Cardiovascular Exam: REGULAR RHYTHM - GI/Abdominal Exam GI & Abdominal Exam: Distended, Soft Assessment and Plan (1) Epididymo-orchitis Status: Acute (2) Failure of outpatient treatment Status: Acute (3) SIRS (systemic inflammatory response syndrome) Status: Acute - Assessment and Plan (Free Text) Assessment: d/c on orals follow up with PMD in 3 days
== END 2017-03-03 16:02 | disposition home or self-care (01) | DRG 728 ==
LOC: H.ER 04:30 → H.ERHOLD 09:44 → H.MEDSURG1 14:47
DX: N45.3 Epididymo-orchitis (principal); R65.10 Systemic inflammatory response syndrome (SIRS) of non-infectious origin without acute organ dysfunction; I86.1 Scrotal varices; N50.3 Cyst of epididymis; R31.29 Other microscopic hematuria; N43.3 Hydrocele, unspecified; N40.0 Benign prostatic hyperplasia without lower urinary tract symptoms